=== PATIENT | female | born 1955 | race Caucasian/White ===

== ENCOUNTER 2019-11-26 20:40 | Emergency (ER) | payer OTHER ==
[2019-11-26 20:52] VITALS: BP 152/76; PULSE 76; TEMP 98.1; BMI 17.6
[2019-11-26] MEDS: ACETAMINOPHEN 500 MG TABLET (FP) PO ONE ×2 (20:54→20:56)
[2019-11-26] MEDS ORDERED: ACETAMINOPHEN 325 MG TABLET (FP) ONE (20:54)
--- NOTE | 2019-11-26 20:57 | PDOC ---
History of Present Illness - General Chief Complaint: Pain Stated Complaint: pain to left foot Time Seen by Provider: 11/26/19 20:46 History Source: Patient Exam Limitations: No Limitations - History of Present Illness Initial Comments: 11/26/19 20:52 64YOF with h/o HTN and monoclonal gammopathy who p/w episode of left foot numbness which resulted in a fall immediately after standing up at home, onto her left side. She notes a foot/ankle injury as a result of this incident but never heard or felt a "pop" or had any deformity - just notes that now it is painful to bear weight since the incident this evening. She has never had this type of foot numbness before, denies any persistent numbness and all she has now is the pain. Denies any other preceding or subsequent symptoms, no JOHN, neck pain, back pain, dysuria, incontinence or retention of bowel or bladder, other bodily numbness/tingling/weakness focally, or other symptoms. She never lost motor capabilities in the foot or toes. Did not hit her head or hurt her neck. She took Tylenol one hour [employer]PER[employer] to the ED. Past History - Medical History Allergies/Adverse Reactions: Allergies Allergy/AdvReac Type Severity Reaction Status Date / Time risedronate sodium AdvReac Severe nausea, Verified 11/26/19 20:42 [From Actonel] achiness Home Medications: Ambulatory Orders Ramipril 5 mg PO DAILY 11/26/19 Anemia: No Asthma: No Cancer: No Cardiac Disorders: No CVA: No COPD: No CHF: No Dementia: No Diabetes: No GI Disorders: No Disorders: No HTN: Yes Hypercholesterolemia: No Liver Disease: No Seizures: No Thyroid Disease: No - Surgical History Abdominal Surgery: No Appendectomy: No Cardiac Surgery: No Cholecystectomy: No Neurologic Surgery: No Orthopedic Surgery: No - Immunization History Td Vaccination: Yes - Psycho-Social/Smoking History Smoking Status: No Smoking History: Never smoked Have you smoked in the past 12 months: No Number of Cigarettes Smoked Daily: 0 Information on smoking cessation initiated: No - Substance Abuse Hx (Audit-C & DAST Scrn) How often the patient has a drink containing alcohol: Monthly or less Score: In Men: 4 or > Positive; In Women: 3 or > Positive: 1 Screen Result (Pos requires Nsg. Audit-10AR): Negative In the last yr the pt used illegal drug/Rx for NonMed reason: No Score: Yes response is considered Positive: 0 Screen Result (Positive result requires Nsg. DAST-10): Negative Review of Systems - Review of Systems Able to Perform ROS?: Yes Comments:: 11/26/19 20:56 GEN: no fever, chills, generalized weakness, or malaise HEENT: no ear pain, eye pain, throat pain or swelling, nosebleed, vision change, or loose teeth SKIN: no cuts, abrasions, or bruises CV: no chest pain, palpitations, or LOC RESP: no cough or SOB GI: no abdominal pain, nausea, vomiting, or black/bloody stool : no hematuria or flank pain/bruising MSK: left foot/ankle pain, otherwise no muscle weakness, muscle pain, joint pain, or joint swelling NECK/BACK: no neck pain, back pain, or trauma reported NEURO: episode of left foot numbness (resolved), no headache, seizure, tingling, focal weakness, or incontinence PSYCH: no suicidality, homicidality, or substance use *Physical Exam - Vital Signs Last Vital Signs Temp Pulse Resp BP Pulse Ox 98.1 F 76 16 152/76 100 11/26/19 20:44 11/26/19 20:44 11/26/19 20:44 11/26/19 20:44 11/26/19 20:44 - Physical Exam 11/26/19 21:02 GENERAL: thin, pleasant, appears older than stated age, nontoxic-appearing, no distress, answers questions appropriately, sitting in wheelchair HEENT: PERRLA, EOMI, moist mucous membranes NECK/BACK: no midline ttp, no spinal stepoff or deformity, no hematoma, full ROM, neck supple CARDIOVASCULAR: regular rate/rhythm, no MGR, strong peripheral pulses, capillary refill <2 seconds, extremities wwp, no edema LUNGS/RESPIRATORY: no respiratory distress, CTAB GI/ABDOMEN: symmetric [id number], normoactive BS, soft, no ttp, no midline pulsatile masses : no CVA tenderness MSK/EXTREMITIES: left foot without skin changes, DP pulse 2+ and equal to contralateral side, no ligamentous instability to anterior/posterior stress on ankle, no crepitus, no ttp medial malleolus, +mild ttp lateral malleolus but moreso overlying anterior talofibular ligament, no ttp Achilles tendon, no tenderness to compression of distal tibia and fibula together, able to wiggle toes and range ankle/foot in all directions, sensation intact and equal to contralateral side, no acute-appearing muscle atrophy, no acute deformity DERM/SKIN: warm and dry, no pallor, no jaundice, no rash, no pathologic- appearing bruising, no skin breakdown, no cuts, no lesions NEUROLOGICAL: GCS 15, CN II-XII grossly intact, 5/5 strength proximally and distally, no facial droop ED Treatment Course - RADIOLOGY Radiology Studies Ordered: Category Date Time Status ANKLE & FOOT-LEFT* [RAD] Stat Radiology 11/26/19 20:51 Ordered Medical Decision Making - Medical Decision Making 11/26/19 21:14 64YOF p/w ankle pain since an injury to the area. Initial Vital Signs Temp Pulse Resp BP Pulse Ox 98.1 F 76 16 152/76 100 11/26/19 20:44 11/26/19 20:44 11/26/19 20:44 11/26/19 20:44 11/26/19 20:44 Exam: ankle with significant swelling, pain in malleolar zone, tenderness edge of lateral and medial malleolus, inability to walk 4 steps for exam. DDX IBNLT: ankle sprain/strain, tendon or ligament rupture/tear, fracture, dislocation, contusion, blood vessel injury, nerve injury, etc. Provider Orders Category Date Time Status Acetaminophen [Tylenol -] Medication 11/26/19 20:54 Discontinued 650 mg .ROUTE .STK-MED ONE Acetaminophen [Tylenol -] Medication 11/26/19 20:52 Discontinued 650 mg PO ONCE ONE ANKLE & FOOT-LEFT* [RAD] Stat Radiology 11/26/19 20:51 Ordered Medications Discontinued Medications Generic Name Dose Route Start Last Admin Trade Name Freq PRN Reason Stop Dose Admin Acetaminophen 650 mg 11/26/19 20:52 11/26/19 20:56 Tylenol - PO 11/26/19 20:53 Not Given ONCE ONE Acetaminophen Confirm 11/26/19 20:54 Tylenol - Administered 11/26/19 20:55 Dose 650 mg .ROUTE .STK-MED ONE Ankle/Foot XR: STS but no obvious fracture or dislocation, otherwise nothing acute. Pts ankle and foot are placed in DUNCAN bandage. Subsequently neurovascularly intact distally, good capillary refill. Pt is given crutches sized to their height and instructed to be WBAT. They are also instructed to use RICE therapy and OTC analgesics. Workup is not concerning for emergency-level pathology at this time. The Pt is appropriate for discharge with close outPt follow up. They are comfortable with this plan and will follow up with PCP in 1-3 days. Specific return precautions are discussed and they will come back to the ER if necessary. Discharge - Discharge Information Problems reviewed: Yes Clinical Impression/Diagnosis: Ankle injury Qualifiers: Encounter type: initial encounter Laterality: left Qualified Code(s): S99.912A - Unspecified injury of left ankle, initial encounter Condition: Stable Disposition: HOME - Admission No - Follow up/Referral Referrals: Srinivasa Obregon MD [Primary Care Provider] - - Patient Discharge Instructions Additional Instructions: You were seen in the ER for an ankle injury. We did an exam and X-rays, which showed no new concerning findings or fractures. We placed your foot and ankle in an DUNCAN bandage, which you can wear for comfort as you need it. You can bear weight on the ankle/foot as tolerated (as your pain allows). Use crutches if you need them. After our assessment, we do not believe you are having a medical emergency at this time, and we believe you are safe to go home. Use RICE therapy (rest, ice, compression, elevation) and take Tylenol for the pain. Please follow up with your primary care provider in 1-3 days. Call their clinic as soon as possible and tell them you were seen in the ER. If you have any new or worsening symptoms, especially worsening or severe pain of the ankle/foot/toes, or new numbness, tingling, weakness, redness, or paleness of the area, please come back to the ER at any time (24 hours a day). - Post Discharge Activity Work/Back to School Note: Back to Work
== END 2019-11-26 22:07 | disposition home or self-care (01) ==
LOC: FER 20:40
DX: S99.912A Unspecified injury of left ankle, initial encounter (principal)
CPT/HCPCS: 73610-TC-LT-FY; 73630-TC-LT; 99283-25

== ENCOUNTER 2023-05-13 06:50 | Day surgery (SDC) | payer OTHER ==
[2023-05-10 10:46] VITALS: BMI 17.6
[2023-05-13] MEDS ORDERED: LIDOCAINE HCL/PF 2% SDV 5ML VIAL ONE (07:06)
[2023-05-13] MEDS ORDERED: PROPOFOL 140 ML ONE (07:06)
[2023-05-13 09:19] VITALS: TEMP 97.9
[2023-05-13 09:21] VITALS: BP 113/61; PULSE 73; RESP 19
== END 2023-05-13 09:07 | disposition home or self-care (01) ==
LOC: FASU-ENDO 06:50
PROVIDERS: ATTEND Internal Medicine Gastroenterology
PROC: 0DJD8ZZ Inspection of Lower Intestinal Tract, Via Natural or Artificial Opening Endoscopic (ICD-10-PCS; principal; 2023-05-13 08:16)
DX: Z12.11 Encounter for screening for malignant neoplasm of colon (principal); Z83.719 Family history of colon polyps, unspecified; R19.5 Other fecal abnormalities